=== PATIENT | male | born 1995 | race African-American/Black ===

== ENCOUNTER 2016-12-16 22:06 | Emergency (ER) | payer MEDICAID ==
[~2016-12-16] VITALS: Ht 190.5 cm; Wt 162.0 kg
[~2016-12-16 22:06] MED LIST: PENI500T PO
[2016-12-16 22:08] VITALS: BP 143/67; PULSE 98; RESP 18; TEMP 98.1; O2SAT 97
[2016-12-17] MEDS ORDERED: DICL75TA PO (01:35)
[2016-12-17] MEDS ORDERED: IBUPROFEN 800 MG TAB PO ONE (01:45)
--- NOTE | 2016-12-17 02:23 | PD ---
HPI Chief Complaint: Injury Time Seen by Provider: 01:34 Travel History International Travel<30 days: No Contact w/Intl Traveler<30days: No Traveled to known affect area: No History of Present Illness HPI 21-year-old black male presents department for evaluation of left knee and ankle pain after stepping into a hole earlier this evening. He states that he had twisted his left knee and ankle. Pain is mild to moderate. Worse with weightbearing. He denies any injury to his head, neck or back. No numbness, tingling or weakness. Pain is Abated by a relation and relieved with elevation. PFSH Past Medical History Narrative Medical Right knee injury Diabetes: No Patient Takes Glucophage: No Diminished Hearing: No Immunizations Current: Yes Tetanus Vaccination: < 5 Years Influenza Vaccination: No Past Surgical History Narrative Surgical Right knee surgery 3 Social History Alcohol Use: Yes (DAILY) Tobacco Use: Yes Substance Use: No Allergies-Medications (Allergen,Severity, Reaction): Coded Allergies: No Known Allergies (Unverified , 12/16/16) Reported Meds & Prescriptions Reported Meds & Active Scripts Active Diclofenac Sodium DR (Diclofenac Sodium) 75 Mg Tabdr 75 Mg PO BID Review of Systems Except as stated in HPI: all other systems reviewed are Neg General / Constitutional: No: Fever Eyes: No: Visual changes HENT: No: Headaches Cardiovascular: No: Chest Pain or Discomfort Respiratory: No: Shortness of Breath Gastrointestinal: No: Abdominal Pain Genitourinary: No: Dysuria Musculoskeletal: Positive: Arthralgias, Limited ROM, Pain, No: Myalgias, Weakness, Edema Skin: No Rash Neurologic: No: Weakness Psychiatric: No: Depression Endocrine: No: Polydipsia Hematologic/Lymphatic: No: Easy Bruising Physical Exam Narrative GENERAL: Well-developed, well-nourished in no apparent distress. Nontoxic appearing. HEAD: Normocephalic, atraumatic. EYES: Pupils equal round and reactive. Extraocular motions intact. No scleral icterus. No injection or drainage. ENT: Nose clear. Throat without erythema, tonsillar hypertrophy or exudate. Uvula midline. Airway patent. NECK: Trachea midline. Supple, nontender, moves head freely. No central bony tenderness or spasm. CARDIOVASCULAR: Regular rate and rhythm without murmurs, gallops, or rubs. RESPIRATORY: Clear to auscultation. Breath sounds equal bilaterally. No wheezes , rales, or rhonchi. GASTROINTESTINAL: Abdomen soft, non-tender, nondistended. No hepato-splenomegaly , or palpable masses. No guarding. EXTREMITIES: No clubbing, cyanosis, or edema. Examination of the left lower extremity reveals mild tenderness to the medial aspect and anterior aspect of the knee. Patient has a positive anterior draw with a firm endpoint but does not cause any discomfort. Negative posterior draw. No medial lateral collateral ligament instability. There is no joint effusion. She has full extension and nearly full flexion. The patient's exam reveals no discomfort with draw so I do not believe that this is an acute injury. Examination of the left ankle reveals no tenderness over the medial lateral malleolus. No instability. Patient complains of mild diffuse tenderness. No pain in the foot , heel, Achilles. He has intact sensation with good distal pulses. No pain in the hip. There is slight abrasion to the medial proximal calf. The right lower extremity as well as upper extremities are without localizing bony tenderness or deformity. Patient is up and independently ambulatory with a mildly antalgic gait. BACK: Nontender without deformity. No flank tenderness. NEUROLOGICAL: Awake, alert and oriented x 3 .Cranial nerves grossly intact. Motor and sensory grossly within normal limits. Normal speech. Data Data Last Documented VS Vital Signs Date Time Temp Pulse Resp B/P (MAP) Pulse Ox O2 Delivery O2 Flow Rate FiO2 12/16/16 22:08 98.1 98 18 143/67 (92) 97 Room Air Orders Orders Ankle, Limited (Ap&Lat) (12/17/16 01:33) Knee, Ltd (1 Or 2vws) (12/17/16 01:33) Ice/Cold Pack (12/17/16 01:33) Splint Or Brace Apply/Monitor (12/17/16 01:33) Crutches (12/17/16 01:33) Ibuprofen (Motrin) (12/17/16 01:45) MDM Medical Decision Making Medical Screen Exam Complete: Yes Emergency Medical Condition: Yes Medical Record Reviewed: Yes Interpretation(s) Left knee: Negative for acute bony injury. Left ankle: Negative for acute bony injury Differential Diagnosis MDM: High Differential diagnoses: Fracture, sprain, strain, dislocation, contusion, neurovascular injury Narrative Course Patient is given ice pack, Motrin 800 mg by mouth, and x-ray of the left knee and left ankle. X-rays are negative for bony injury. Patient's given crutches and Eliud wrap. This is left knee and left ankle sprain Diagnosis Primary Impression: left knee sprain Additional Impression: left ankle sprain Patient Instructions: General Instructions Departure Forms: School Release, Please excuse from school until (free text option): No school 12/17/16 Tests/Procedures Additional Instructions: Rest. Elevation. Ice packs for the next 3 days. Eliud wrap and crutches. No weight-bearing and then progress to weight-bearing as tolerated. Medications as directed Follow-up with an orthopedist or your doctor in one week. Return to the ER if any problems Med/Other Pt SpecificInfo: Prescription(s) given Scripts Diclofenac Sodium (Diclofenac Sodium DR) 75 Mg Tabdr 75 MG PO BID, #20 TAB 0 Refills Prov: Paula Avery MD 12/17/16 Disposition: 01 DISCHARGE HOME Condition: Stable Sylvester Coulter Dec 17, 2016 02:23
--- NOTE | 2016-12-17 02:24 | RADRPT ---
EXAM DATE/TIME: 12/17/2016 02:42 [facility] COMPARISON: No previous studies available for comparison. INDICATIONS : Left knee pain post fall. MEDICAL HISTORY : None. SURGICAL HISTORY : None. ENCOUNTER: Initial ACUITY: 1 day PAIN SCORE: 6/10 LOCATION: Left knee. FINDINGS: Two view examination of the left knee demonstrates no evidence of fracture or dislocation. Bony mine ralization is normal. The suprapatellar soft tissues have a normal configuration. CONCLUSION: No acute fracture. Salazar Rivera MD on December 17, 2016 at 2:23 Board Certified Radiologist. This report was verified electronically.
--- NOTE | 2016-12-17 02:24 | RADRPT ---
EXAM DATE/TIME: 12/17/2016 02:39 [facility] COMPARISON: No previous studies available for comparison. INDICATIONS : Left ankle pain post fall. MEDICAL HISTORY : None. SURGICAL HISTORY : None. ENCOUNTER: Initial ACUITY: 1 day PAIN SCORE: 7/10 LOCATION: Left ankle. FINDINGS: Two view exam was performed of the left ankle. The bony structures are in normal alignment. No evid ence of fracture or dislocation. There is soft tissue swelling. No radiopaque foreign bodies are see n. Bony mineralization is normal. CONCLUSION: Soft tissue swelling without acute fracture. Salazar Rivera MD on December 17, 2016 at 2:22 Board Certified Radiologist. This report was verified electronically.
== END 2016-12-17 02:50 | disposition home or self-care (01) ==
LOC: NEPD 22:06
DX: S83.92XA Sprain of unspecified site of left knee, initial encounter (principal); S93.402A Sprain of unspecified ligament of left ankle, initial encounter; W17.2XXA Fall into hole, initial encounter
CPT/HCPCS: 73560; 73600; 99283; E0113